=== PATIENT | male | born 1970 | race Caucasian/White ===

== ENCOUNTER 2016-10-31 11:26 | Emergency (ER) | payer OTHER ==
[~2016-10-31] VITALS: Ht 175.3 cm; Wt 97.7 kg
[2016-10-31 11:32] VITALS: BP 217/122; PULSE 100; RESP 16; O2SAT 98
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
[2016-10-31 11:48] VITALS: BP 208/112; PULSE 93; RESP 14; O2SAT 97
--- NOTE | 2016-10-31 12:19 | DRSVH ---
PROCEDURE: X-RAY KUB ([id number]) INDICATIONS: eval for metal foreign body (bristle) abdomen TECHNIQUE: One view of the abdomen acquired. COMPARISON: None. FINDINGS: Surgical changes and devices: None. Bowel: Bowel gas pattern is normal. Soft tissues: No suspicious abdominal calcifications. Visualized solid organ contours appear normal in size. No unexpected radiopaque foreign bodies are evident. There is subtle radiopaque density c ould potentially be obscured by overlying bone. The need for lateral radiographs may be determined c linically. Bones: No suspicious bony lesions. Age-appropriate degenerative changes of the imaged spine and hip s are present. IMPRESSION: 1. No radiopaque foreign bodies are evident. 2. No bowel obstruction. Dictated by: Matthew Escalona M.D. on 10/31/2016 at 11:17 Approved by: Matthew Escalona M.D. on 10/31/2016 at 11:18
[2016-10-31] MEDS ORDERED: TdaP Vaccine 0.5 mL Inj IM ONE (12:45)
--- NOTE | 2016-10-31 13:51 | DRSVH ---
PROCEDURE: US EXTREMITY SONOGRAM LIMITED ([id number]) INDICATIONS: Evaluate for subcutaneous foreign body in the periumbilical region, thought to represent a wire fragment. TECHNIQUE: Real-time scanning was performed of the periumbilical region, with image documentation. COMPARISON: None. FINDINGS: No foreign body found. IMPRESSION: No foreign body found. Dictated by: Vimal Jacobs M.D. on 10/31/2016 at 12:48 Approved by: Vimal Jacobs M.D. on 10/31/2016 at 12:49
[2016-10-31 14:06] VITALS: BP 195/121; PULSE 97; RESP 16; O2SAT 99
== END 2016-10-31 14:08 | disposition home or self-care (01) ==
LOC: SED 11:26
DX: S30.851A Superficial foreign body of abdominal wall, initial encounter (principal); W45.8XXA Other foreign body or object entering through skin, initial encounter; Y93.89 Activity, other specified; Y92.89 Other specified places as the place of occurrence of the external cause; Y99.8 Other external cause status; I15.9 Secondary hypertension, unspecified; I10 Essential (primary) hypertension; F17.200 Nicotine dependence, unspecified, uncomplicated; Z23 Encounter for immunization